=== PATIENT | male | born 1940 | race Caucasian/White ===

== ENCOUNTER 2016-10-17 20:47 | Inpatient (IN) | payer MEDICARE ==
[2016-10-17 22:38] VITALS: BP 149/80
[2016-10-17] MEDS ORDERED: Magnesium Hydroxide (MOM) 30 mL UDC PO PRN (22:40)
[2016-10-17] MEDS ORDERED: Maalox 30 mL Cup PO PRN (22:40)
[2016-10-18] MEDS ORDERED: INSULIN ASPART SLIDING SCALE 100 UNITS/ML UNIT SUBQ SCH (04:15)
[2016-10-18] MEDS: INSULIN ASPART SLIDING SCALE 100 UNITS/ML UNIT SUBQ SCH ×4 (06:33→21:44)
[2016-10-18] MEDS: NIFEdipine 30 mg ER Tab PO SCH (08:58)
[2016-10-18] MEDS: Multivitamin Tab PO SCH (08:58)
[2016-10-18] MEDS ORDERED: Potassium Chloride 20 mEq ER Tab PO PRN (09:42)
[2016-10-18 10:46] LABS: % BASOPHILS 0.3 % (0.0-2.0); % EOSINOPHILS 0.7 % (0.0-5.0); % LYMPHOCYTES 20.5 % (20.0-50.0); % MONOCYTES 10.1 % (2.0-10.0); % NEUTROPHILS 68.4 % (40.0-80.0); HEMATOCRIT 37.6 % (39.0-49.0); HEMOGLOBIN 12.6 gm/dL (12.6-17.4); MEAN CORPUSCULAR HEMOGLOBIN 27.5 pg (27.0-31.0); MEAN CORPUSCULAR HGB CONC 33.5 pg (28.0-36.0); MEAN PLATELET VOLUME 8.1 fl; PLATELET COUNT 373 Th/cmm (150-400); RED BLOOD COUNT 4.59 Mil/cmm (3.80-5.80); RED CELL DISTRIBUTION WIDTH 13.9 % (11.5-20.0); WHITE BLOOD COUNT 10.2 Th/cmm (4.8-10.8)
--- NOTE | 2016-10-18 11:17 | Diagnostic Imaging Report ---
CHEST X-RAY: AP view INDICATION: Weakness, confusion COMPARISON: None FINDINGS: Chronic changes are seen with no focal consolidation or pleural effusions. Heart size normal. Atherosclerosis is noted. Degenerative changes of the spine are noted. IMPRESSION: Chronic lung changes with no focal consolidation identified. Atherosclerosis.
--- NOTE | 2016-10-18 13:06 | History & Physical ---
CHIEF COMPLAINT: Psychosis. HISTORY OF PRESENT ILLNESS: The patient is very confused 76-year-old male. He has been acting more confused and he has been hallucinating as well. He thinks his is a prostitute. He is becoming very hard to manage, apparently he presents from home. He is being admitted in acute Geropsych Unit as he is very appropriate. PAST MEDICAL HISTORY: Significant for diabetes and dementia and mood disorder and possible schizophrenia. SOCIAL HISTORY: No documented history of alcohol, tobacco, or drug abuse. FAMILY HISTORY: Unknown. ALLERGIES: No known drug allergies. HOME MEDICATIONS: Reviewed and reconciled. REVIEW OF SYSTEMS: GENERAL: Positive recent confusion. HEENT: No recent head trauma, change in vision, taste, hearing, or smell. Oral: No recent pain or discharge. Eyes: He wears glasses. Denies any vision changes. NECK: No recent tracheal deviation. CARDIOVASCULAR: No recent chest pain or palpitations. SKIN: No recent rashes. PSYCHIATRIC: Positive for psychosis or hallucinations. EXTREMITIES: No recent edema. MUSCULOSKELETAL: No DJD or pain. He has stable gait. GENITOURINARY: No recent increased frequency, urgency, ____ or dysuria. PHYSICAL EXAMINATION: VITAL SIGNS: Temperature 97.9 degrees, heart rate 86, respirations 20, blood pressure 125/70. No pain. GENERAL: No acute distress. He is awake. He is very hard to do direct. He is very confused, unable to answer most questions. HEENT: Normocephalic, atraumatic. Pupils are round and reactive to light. Extraocular muscles intact. He wears glasses. Nose, septum midline, no discharge. Oral cavity is clear. NECK: Trachea is midline. No JVD. CARDIOVASCULAR: Regular rate and rhythm. ABDOMEN: Nontender, nondistended. SKIN: No rashes. PSYCHIATRIC: He has labile mood. EXTREMITIES: No edema. MUSCULOSKELETAL: He has 5+ muscle strength. LABORATORY DATA: TSH is 2.6. ____ordered a chest x-ray, UA and CBC and CMP. ASSESSMENT: 1. Diabetes mellitus. 2. Dementia, Alzheimer's type with exacerbation. 3. Psychosis. 4. Schizophrenia. 5. Hypertension. PLAN: Follow up on the hemoglobin A1c. Continue glipizide and fingerstick blood sugars and regular insulin sliding scale. He is on Tylenol for mild to moderate pain. Continue Procardia/nifedipine 30 mg daily for his hypertension. He is on Zyprexa for his psychosis. I have started him on Ambien p.r.n. He will need inpatient psychiatric care, follow up on the rest of the labs. JOB# [id number]
--- NOTE | 2016-10-18 17:03 | History & Physical ---
Covering for Dr. Gee. IDENTIFYING INFORMATION: The patient is 76-year-old male. CHIEF COMPLAINT: The patient was sent because of psychosis. HISTORY OF PRESENT ILLNESS: The patient was ____ because he has been agitated, paranoid. He believes his is a prostitute. He was ____ delusional, responding to internal stimuli. He came from [facility] and the patient himself was a very poor historian and cannot make decisions or participate in a meaningful conversation, though he was able to tell me roughly his age. He is demented and confused. PAST PSYCHIATRIC HISTORY: Unobtainable. MEDICAL HISTORY: CVA, hypertension, diabetes mellitus, brain tumor. ALLERGIES: The patient has no known drug allergies. MEDICATIONS: He has been on ____. He is diabetic and olanzapine 2.5 mg at bedtime. FAMILY AND SOCIAL HISTORY: Unobtainable. The patient believes his is a prostitute. ____ reports he has 3 children. He said 4 children, very poor historian, unable to make safe plan for self-care. MENTAL STATUS EXAMINATION: His long-term memory is intact. Short term memory is poor. He is not sure exactly about why he is here, unable to answer questions about suicide, homicide, though he was trying to hurt his , was aggressive. His insight and judgment is impaired. IMPRESSION: AXIS I: Dementia with behavioral disturbances and delusions. MEDICAL DIAGNOSES: Deferred to the medical doctor. His assets, he is accepting treatment. Negative poor coping skills. INITIAL TREATMENT PLAN: The patient will be continued with Zyprexa. We will adjust medication as needed. We will do group therapy, milieu therapy, and individual therapy. ESTIMATED LENGTH OF STAY: 3-7 days. DISCHARGE CRITERIA: Decrease agitation, psychosis, no longer threatening. After discharge, outpatient treatment. JOB# [id number]
[2016-10-18] MEDS: Atorvastatin Calcium 10 MG TAB PO SCH (21:19)
[2016-10-19] MEDS: INSULIN ASPART SLIDING SCALE 100 UNITS/ML UNIT SUBQ SCH ×4 (06:31→21:06)
[2016-10-19 07:53] LABS: ALB/GLOB RATIO 1.4 (1.0-1.8); ALKALINE PHOSPHATASE 71 U/L (34-104); ANION GAP 7.7 (7.0-16.0); BILIRUBIN,TOTAL 0.6 mg/dL (0.3-1.0); BUN - UREA NITROGEN 28 mg/dL (7-25); BUN/CREATININE RATIO 23.3; CALCIUM SERUM 9.4 mg/dL (8.6-10.3); CARBON DIOXIDE 30.5 mEq/L (21.0-31.0); CHLORIDE 104 mEq/L (98-107); CREATININE - SERUM 1.2 mg/dL (0.7-1.3); GLUCOSE 139 mg/dL (70-105); POTASSIUM SERUM 4.2 mEq/L (3.5-5.1); SGOT 21 U/L (13-39); SGPT/ALT 17 U/L (7-52); SODIUM SERUM 138 mEq/L (136-145)
[2016-10-19] MEDS: NIFEdipine 30 mg ER Tab PO SCH (10:03)
[2016-10-19] MEDS: Multivitamin Tab PO SCH (10:03)
[2016-10-19] MEDS: Atorvastatin Calcium 10 MG TAB PO SCH (20:33)
--- NOTE | 2016-10-20 02:00 | Progress Notes ---
SUBJECTIVE: The patient seen, chart reviewed, discussed with staff. The patient highly confused, AO to name only, currently in the hospital, paranoid, agitated, stating his was a prostitute, unable to be cared for at a lower level of care. He has no idea what is going on. He does not know where he is. He does not know the year. Not answering most questions. The patient appears to have advanced dementia. Sleeping fairly well, eating with prompting, needing prompting for ADLs and still requiring a lot of supervision and redirection. ASSESSMENT: The patient highly confused, delusional, paranoid, aggressive, unable to be cared for at a lesser level of care. PLAN: Continue to monitor. Continue low dose of Zyprexa. JOB# [id number]
[2016-10-20] MEDS: INSULIN ASPART SLIDING SCALE 100 UNITS/ML UNIT SUBQ SCH ×4 (06:31→21:16)
[2016-10-20] MEDS: Multivitamin Tab PO SCH (08:40)
[2016-10-20] MEDS: NIFEdipine 30 mg ER Tab PO SCH (09:39)
[2016-10-20] MEDS: Atorvastatin Calcium 10 MG TAB PO SCH (21:12)
--- NOTE | 2016-10-21 03:26 | Progress Notes ---
SUBJECTIVE: The patient seen, chart reviewed and discussed with staff. The patient is currently in the hospital, confused, poor orientation, paranoid, stating his was a prostitute, refusing interview, not answering any questions, highly confused, advanced dementia, disoriented, sleeping fairly well, eating with prompting and needing prompting for ADLs. Currently, gravely disabled and cannot take care of himself. ASSESSMENT: The patient remains confused, delusional, psychotic and still symptomatic. PLAN: Continue to monitor. Continue Zyprexa. Titrate as tolerated. JOB# [id number]
[2016-10-21] MEDS: INSULIN ASPART SLIDING SCALE 100 UNITS/ML UNIT SUBQ SCH ×4 (06:47→21:03)
[2016-10-21] MEDS: NIFEdipine 30 mg ER Tab PO SCH (08:59)
[2016-10-21] MEDS: Multivitamin Tab PO SCH (09:00)
[2016-10-21] MEDS: Atorvastatin Calcium 10 MG TAB PO SCH (21:01)
--- NOTE | 2016-10-22 04:25 | Progress Notes ---
SUBJECTIVE: The patient was seen, chart reviewed and discussed with staff. The patient remains symptomatic, confused, disoriented, still looking for his , still believing that staff members are his family, wandering, rambling, poorly oriented, still requiring a lot of staff supervision, redirection and requiring prompting for ADLs and appetite. Sleeping fairly well and eating with prompting. ASSESSMENT: The patient remains symptomatic, confused and still delusional. The patient not safe for a lower level of care at this time. PLAN: Continue to monitor. Continue to titrate medications. JOB# [id number]
[2016-10-22] MEDS: INSULIN ASPART SLIDING SCALE 100 UNITS/ML UNIT SUBQ SCH ×4 (06:47→20:52)
[2016-10-22] MEDS: NIFEdipine 30 mg ER Tab PO SCH (09:45)
[2016-10-22] MEDS: Multivitamin Tab PO SCH (09:45)
[2016-10-22] MEDS: Atorvastatin Calcium 10 MG TAB PO SCH (20:51)
--- NOTE | 2016-10-23 01:14 | Progress Notes ---
SUBJECTIVE: The patient was seen, chart reviewed, and discussed with staff. The patient remains symptomatic, confused, and does not really know where he is or what is going on. Participated in interview. Still delusional, paranoid, and making some odd statements, still requiring a lot of redirection. Sleeping fairly well and eating with prompting. He is pretty isolative and withdrawn. Still looking for his . Still visit family members or in the unit and the staff for his family members. ASSESSMENT: The patient remains symptomatic, delusional, and gravely disabled, cannot be cared for at a lower level of care. PLAN: Continue to monitor and titrate medications as tolerated. We will adjust dosing of his medications. We will increase Zyprexa to 5 mg. Given the severity of the patient's behaviors and current symptoms, he is not safe for discharge at this time. JOB# [id number]
[2016-10-23] MEDS ORDERED: Piperacillin Sodium/Tazobact 3.375 gm Vial IV ONE (05:56)
[2016-10-23] MEDS: INSULIN ASPART SLIDING SCALE 100 UNITS/ML UNIT SUBQ SCH ×4 (06:30→20:15)
[2016-10-23] MEDS: NIFEdipine 30 mg ER Tab PO SCH (08:54)
[2016-10-23] MEDS: Multivitamin Tab PO SCH (08:55)
[2016-10-23] MEDS: Atorvastatin Calcium 10 MG TAB PO SCH (20:15)
[2016-10-24] MEDS: INSULIN ASPART SLIDING SCALE 100 UNITS/ML UNIT SUBQ SCH ×4 (06:37→21:28)
[2016-10-24] MEDS: NIFEdipine 30 mg ER Tab PO SCH (08:16)
[2016-10-24] MEDS: Multivitamin Tab PO SCH (08:16)
--- NOTE | 2016-10-24 15:36 | Progress Notes ---
SUBJECTIVE: The patient seen, chart reviewed, discussed with staff. The patient remains confused, symptomatic, still believes that staff are his family ;he seems to be calmer, more redirectable. Sleeping fairly well, eating with prompting, he seems to be mildly sedated in the morning, waking up around 8:00 a.m., and then he is eating. Staff noting that he is not sleeping during the daytime, still with psychotic symptoms, delusional, still impulsive, unpredictable. No medication side effects noted. ASSESSMENT: The patient remains symptomatic, delusional, still psychotic, still impulsive, unpredictable, not safe for discharge. PLAN: We will continue to monitor. Continue Zyprexa at current dose given recent dose increase. [facility]# [id number] MTDD
[2016-10-24] MEDS: Atorvastatin Calcium 10 MG TAB PO SCH (21:24)
--- NOTE | 2016-10-25 06:37 | Progress Notes ---
SUBJECTIVE: The patient was seen, chart reviewed, and discussed with staff. The patient remains symptomatic, still delusional. He is calmer on exam on a positive note, seems to be more redirectable, currently gravely disabled, unable to care for his basic needs. At this time, he is very confused, still delusional, believes that staff are his family members. No agitation, no aggressive behaviors, needs prompting for ADLs needs prompting to eat. No medication side effects noted. No overt sedation, no EPS. ASSESSMENT: The patient remains delusional, psychotic, not safe for discharge. Still psychotic, still impulsive, and unpredictable. PLAN: Continue to monitor. We will titrate medications as tolerated. We will try to coordinate care with social work regarding safe discharge plan and good psychiatric followup. JOB# [id number]
[2016-10-25] MEDS: INSULIN ASPART SLIDING SCALE 100 UNITS/ML UNIT SUBQ SCH ×3 (06:44→16:52)
[2016-10-25] MEDS: NIFEdipine 30 mg ER Tab PO SCH (09:13)
[2016-10-25] MEDS: Multivitamin Tab PO SCH (09:13)
--- NOTE | 2016-10-25 20:40 | Discharge Summary ---
HISTORY OF PRESENT ILLNESS: A 76-year-old male, agitated, paranoid, unable to be cared for at a lower level of care, delusional. CHIEF COMPLAINT: Psychotic decompensation. HISTORY OF PRESENT ILLNESS: A 76-year-old male who came to the hospital agitated, believing his was a prostitute, delusional, responding to internal stimuli, unable to participate in meaningful conversations, demented, confused, poor historian. PAST PSYCHIATRIC HISTORY: Dementia. ALLERGIES: No known drug allergies. SOCIAL HISTORY: Apparently, the patient is . Reports he has 3 children, but then 4 children. MENTAL STATUS EXAMINATION: Please see full psych eval for details. PROVISIONAL DIAGNOSES: Dementia with behavioral disturbances; psychosis, unspecified. MEDICAL: Please see full History and Physical. HOSPITAL COURSE: After initial assessment, the patient was started on medications by Dr. Davis who saw him initially. She started Zyprexa. Zyprexa was titrated over the course of the hospitalization. He improved, albeit slowly. He remained delusional for quite some time, somewhat agitated, unpredictable, poor impulse control. However, toward the latter end of his hospitalization, his mood improved, his affect improved, he was more sociable and engaged, seemed to be getting along better with staff and peers, sleeping without any prompting. Placement was confirmed by 10/25/2016. He was no longer violent or aggressive and his delusions have dissipated and he was discharged. CONDITION UPON DISCHARGE: Improved. Fair attention to ADLs. Amenable to care. Speech decreased content. Mood "okay." Affect flat. Thought process is confused. Thought content, no SI, no HI, no evidence of psychosis. Insight and judgment improved x2, still diminished, however. Sleeping well, eating well, no aggression, no agitation. Good discharge plan. DISCHARGE DIAGNOSES: Dementia with behavioral disturbances; psychosis, unspecified. MEDICAL: Please see full History and Physical. Includes diabetes. PROGNOSIS: If the patient follows up with Psychiatry in 7-10 days, takes his medications as directed and remains treatment compliant, prognosis will improve, otherwise guarded. [facility]# [id number]
== END 2016-10-25 19:10 | DRG 57 ==
LOC: GERO 20:47
PROVIDERS: ADMIT Psychiatry & Neurology Psychiatry; ATTEND Psychiatry & Neurology Psychiatry
DX: G30.9 Alzheimer's disease, unspecified (principal); E46 Unspecified protein-calorie malnutrition; F02.81 Dementia in other diseases classified elsewhere, unspecified severity, with behavioral disturbance; E11.65 Type 2 diabetes mellitus with hyperglycemia; F29 Unspecified psychosis not due to a substance or known physiological condition; F20.9 Schizophrenia, unspecified; I10 Essential (primary) hypertension; F22 Delusional disorders; E86.0 Dehydration; K59.00 Constipation, unspecified; Z86.73 Personal history of transient ischemic attack (TIA), and cerebral infarction without residual deficits; Z68.24 Body mass index [BMI] 24.0-24.9, adult
CPT/HCPCS: 36415-UA; 71010-TC; 80053-TC; 82948-90; 83036-90; 83735-TC; 84443-TC; 85025-TC; 86592-TC; 93005; J1815; J2543; J7051